=== PATIENT | female | born 2000 | race African-American/Black ===

== ENCOUNTER 2020-06-13 16:29 | Emergency (ER) | payer OTHER ==
[~2020-06-13] VITALS: Ht 162.6 cm; Wt 72.4 kg
--- NOTE | 2020-06-13 16:59 | PHYS DOC ---
Adult General Chief Complaint Chief Complaint: VAGINAL BLEEDING HPI HPI Patient is a old female who presents after 4 days of vaginal spotting and expulsion of a mass that occurred 2 hours prior to arrival. Patient reports taking [facility] OCP for past 6 months months without issue. She admits to being sexually active with x1 male partner and admits unprotected intercourse. Patient reports no history of STDs. Patient reports 5 days ago, light vaginal spotting was first noticed. This has waxed and waned. 2 hours prior to arrival, patient reports passing 3x3cm jelly appearing mass. Although patient completely asymptomatic, this concerned her prompting her to present at [facility] for further evaluation Review of Systems Review of Systems Constitutional: Denies fever or chills Eyes: Denies change in visual acuity, redness, or eye pain HENT: Denies nasal congestion or sore throat Respiratory: Denies cough or shortness of breath Cardiovascular: No chest pain, no palpitations GI: Denies abdominal pain, nausea, vomiting, bloody stools or diarrhea : Denies dysuria or hematuria. Light, intermittent, bright red vaginal spotting. Musculoskeletal: Denies back pain or joint pain Integument: Denies rash or skin lesions. No pallor Neurologic: Denies headache, focal weakness or sensory changes Endocrine: Denies polyuria or polydipsia All other systems were reviewed and found to be within normal limits, except as documented in this note. Physical Exam Physical Exam Constitutional: Well developed, well nourished, no acute distress, non-toxic appearance. HENT: Normocephalic, atraumatic, bilateral external ears normal, oropharynx moist, no oral exudates, nose normal. Eyes: PERRLA, EOMI, conjunctiva normal, no discharge. Neck: Normal range of motion, no tenderness, supple, no stridor. Cardiovascular:Heart rate regular rhythm, no murmur Lungs & Thorax: Bilateral breath sounds clear to auscultation Abdomen: Bowel sounds normal, soft, no tenderness, no masses, no pulsatile masses. Nonsurgical abdomen, no peritoneal signs Skin: Warm, dry, no erythema, no rash. Back: No tenderness, no CVA tenderness. Extremities: No tenderness, no cyanosis, no clubbing, ROM intact, no edema. Neurologic: Alert and oriented X 3, normal motor function, normal sensory function, no focal deficits noted. Psychologic: Affect normal, judgement normal, mood normal. Current Patient Data Vital Signs Vital Signs Date Time Temp Pulse Resp B/P (MAP) Pulse Ox O2 Delivery O2 Flow Rate FiO2 06/13/20 16:29 100.0 89 18 127/65 (85) 98 Room Air EKG EKG [] Radiology/Procedures Radiology/Procedures [] Course & Med Decision Making Course & Med Decision Making Patient seen and examined on ED arrival by myself Vital signs grossly unremarkable. History and comprehensive physical exam performed, no immediate surgical indications present Labs and imaging studies obtained (see chart for more detail). Non-, no UTI, 3 x 3 cm jellylike vaginal mass sent to pathology for further evaluation Discussed utility of further lab work, pelvic exam, and pelvic ultrasound. No emergent indication for these to be performed in ED setting given patient is hem odynamically stable, asymptomatic, and not bleeding currently Joint decision to defer these tests to PCP in outpatient setting. Discussed utility of PREPARATOR referral at discretion of PCP Discussed pathology would take at least 5 to 7 days to report back. Discussed with patient what to do if she has not heard back from our hospital on pathology report in the last 7 days Concerning signs or symptoms discussed with patient, strict return precautions discussed with good understanding. Dragon Disclaimer Dragon Disclaimer This electronic medical record was generated, in whole or in part, using a voice recognition dictation system. Departure Departure: Impression: Primary Impression: Vaginal discharge Additional Impression: Vaginal spotting Disposition: 01 HOME/RESIDENCE PRIOR TO ADM Condition: STABLE Additional Instructions: As discussed prior to [place] ED departure, please follow-up with your PCP for Expulsion of unknown vaginal mass in non female. Pending pathologic report. Recommend outpatient pelvic ultrasound and need for PREPARATOR referral as indicated Spotting and non female on OCPs Justification of Admission: Justification of Admission: Justification of Admission Dx: N/A Problem Qualifiers PARK PRATT DO Jun 13, 2020 16:59
[2020-06-13 17:52] LABS: BILIRUBIN,URINE NEG (NEG); CLARITY,URINE CLEAR; COLOR,URINE YELLOW; GLUCOSE,URINE NEG (NEG)
[2020-06-13 17:53] LABS: BACTERIA,URINE 0 /HPF (0-FEW); NITRITE,URINE NEG (NEG); RBC,URINE OCC /HPF (0-2); SQUAMOUS EPITHELIAL CELL,UR MOD /LPF; WBC,URINE OCC /HPF (0-4)
[2020-06-13 18:00] VITALS: BP 119/79
--- NOTE | 2020-06-17 18:11 | PATHOLOGY ---
[place] Accession Number: [id number] . 01 Material submitted: . vagina - JELLY LIKE 3X3CM VAGINAL MASS . 01 Clinical history: . Vaginal mass. . 02 Diagnosis: Vaginal mass, removal: - Decidual cast showing focal hemorrhage, necrosis, and acute inflammation. LBQ 06/17/2020 1731 Local . 02 Comment: There are no chorionic villi identified. (JPM/db; 06/17/2020) . 02 Electronically signed: . Harsh Napier MD, Pathologist NPI- [id number] . 01 Gross description: . Received in formalin labeled "Josefa Singleton, tissue from vag." is a portion of fernando-brown nodular tissue measuring 3.6 x 3.0 x 1.2 cm. The specimen is serially sectioned to reveal a possible cystic structure, which is devoid of contents, and measures 2.0 cm in greatest dimension. [facility] tissue is submitted in cassettes A1-A2. ([facility]; 06/16/2020) [facility] 06/16/2020 1005 Local . 02 Pathologist provided ICD-10: N76.0 . 02 CPT . 389267 Specimen Comment: Report sent to Performed at: [facility] [address], [place] [id number] MD Judson Watson MD Phone: [phone] Performed at: 02 [facility] [address], [place] [id number] MD Harsh Napier MD Phone: [phone]
== END 2020-06-13 18:02 | disposition home or self-care (01) ==
LOC: ER 16:29
DX: N93.9 Abnormal uterine and vaginal bleeding, unspecified (principal)
CPT/HCPCS: 81001; 81025; 88305; 99283